=== PATIENT | female | born 1995 | race Caucasian/White ===

== ENCOUNTER → 2019-02-22 08:17 | Outpatient (CLI) | payer OTHER, SELFPAY ==
--- NOTE | 2019-02-22 08:21 | DI.US.S_ITS ---
LIMITED ULTRASOUND OF RIGHT BREAST: 02/22/2019 CLINICAL: Palpable right breast lump. No prior exams were available for comparison. Real-time ultrasound of the right breast upper outer quadrant was performed on the area of interest. No discrete cystic or solid mass identified in the upper outer quadrant of the right breast. Specifically, no mass identified in the area of palpable abnormality at the 12:00 position 7 cm from the nipple. IMPRESSION: NEGATIVE There is no sonographic evidence of malignancy. There is no abnormality seen in the right breast to correspond with the palpable abnormality in the upper outer quadrant, however, clinical followup is recommended. If the finding persists, a followup repeat study or mammogram may be performed if there is persistent clinical concern. This exam was interpreted at Station ID: [id number]. Electronically Signed By: Jose De Jesus Chiang M.D. [email or web address]/:02/22/2019 10:06:03 letter sent: Clinical Evaluation Ultrasound BI-RADS: 1 Negative
== END ==
PROVIDERS: Visit Provider Surgery
DX: N63.11 Unspecified lump in the right breast, upper outer quadrant (principal)
CPT/HCPCS: 76642

== ENCOUNTER → 2019-07-30 16:57 | Outpatient (CLI) | payer OTHER, SELFPAY ==
[2019-08-01 18:09] LABS: COVID19 Sendout Not Detected (Not Detected)
== END ==
PROVIDERS: Visit Provider Registered Nurse
DX: R51 Headache (principal); R53.83 Other fatigue
CPT/HCPCS: 87635